=== PATIENT | male | born 1980 | race African-American/Black ===

== ENCOUNTER 2024-01-25 07:58 | Emergency (ER) | payer MEDICAID ==
[~2024-01-25] VITALS: Ht 175.3 cm; Wt 70.0 kg
[2024-01-25 08:03] VITALS: TEMP 97.9; O2SAT 97
[2024-01-25 08:51] LABS: BASOPHILS % 0.9 % (0.0-2.0); EOSINOPHILS % 2.4 % (0.0-5.0); HEMATOCRIT. 45.8 % (42.0-52.0); LYMPHOCYTES % 36.2 % (20.0-50.0); MEAN CORPUSCULAR HEMOGLOBIN 27.7 pg (28.0-32.0); MEAN CORPUSCULAR HGB CONC 32.7 g/dL (31.0-37.0); MEAN CORPUSCULAR VOLUME 84.7 fL (80.0-94.0); MEAN PLATELET VOLUME 7.6 fl (7.4-10.4); MONOCYTES % 8.9 % (2.0-8.0); NEUTROPHILS % 51.6 % (40.0-76.0); PLATELET 219 x1000/uL (130-400); RED BLOOD CELL COUNT 5.41 mill/uL (4.7-6.1); WHITE BLOOD COUNT 5.5 x1000/uL (4.5-11.0)
[2024-01-25 08:57] LABS: CLARITY URINE CLEAR (CLEAR); COLOR URINE YELLOW (YELLOW); GLUCOSE URINE NEGATIVE (NEGATIVE); KETONES URINE NEGATIVE (NEGATIVE); LEUKOCYTE ESTERASE URINE NEGATIVE (NEGATIVE); NITRITE URINE NEGATIVE (NEGATIVE); OCCULT BLOOD URINE NEGATIVE (NEGATIVE); PH URINE 6.5 (4.5-8.0); PROTEIN URINE NEGATIVE (NEGATIVE); SPECIFIC GRAVITY URINE 1.026 (1.005-1.030)
[2024-01-25 09:04] LABS: CHLORIDE 107 mEq/L (98-107); POTASSIUM 3.6 mEq/L (3.5-5.1); SODIUM 141 mEq/L (136-145)
[2024-01-25 09:05] LABS: CARBON DIOXIDE 28 mEq/L (21-32)
[2024-01-25 09:06] LABS: CALCIUM 9.3 mg/dL (8.7-10.4)
[2024-01-25 09:10] LABS: CREATININE 1.2 mg/dL (0.6-1.3)
[2024-01-25 09:11] LABS: GLUCOSE 100 mg/dL (70-105); UREA NITROGEN BLOOD 14 mg/dL (9-23)
[2024-01-25 09:12] LABS: ALANINE AMINOTRANSFERASE 9 IU/L (10-49); ALBUMIN 4.3 g/dL (3.2-4.8); ASPARTATE AMINOTRANSFERASE 13 IU/L (<34)
[2024-01-25 09:13] LABS: BILIRUBIN DIRECT 0.1 mg/dL (<=3.0); BILIRUBIN TOTAL 0.5 mg/dL (0.1-1.0); PROTEIN TOTAL 7.3 g/dL (6.0-8.3)
[2024-01-25 09:23] LABS: PROTHROMBIN TIME 11.3 sec (9.6-11.0)
[2024-01-25] MEDS ORDERED: KETOROLAC 30MG/ML VIAL IM ONE (10:45)
[2024-01-25] MEDS ORDERED: IBUP-2028 MT (10:48)
[2024-01-25] MEDS ORDERED: METH-653 MT (10:48)
[2024-01-25] MEDS ORDERED: LIDO700A15 TP (10:48)
[2024-01-25 11:18] VITALS: O2SAT 99
[2024-01-25 11:26] VITALS: BP 126/80; PULSE 74; RESP 16
[2024-01-25] MEDS: METHOCARBAMOL 750MG TABLET PO SCH (11:26)
[2024-01-25] MEDS: KETOROLAC 30MG/ML VIAL IV ONE (11:26)
[2024-01-25] MEDS ORDERED: IOHEXOL-300 100 ML BOTTLE ONE (11:46)
== END 2024-01-25 11:26 | disposition home or self-care (01) ==
LOC: ER 07:58
DX: K57.90 Diverticulosis of intestine, part unspecified, without perforation or abscess without bleeding (principal); D18.03 Hemangioma of intra-abdominal structures
CPT/HCPCS: 80076; 80048; 81003; 83690; 85025; 85610; 36415; 74177; 96374; 99285; Q9967; J1885; Z7610